=== PATIENT | male | born 1975 | race African-American/Black ===

== ENCOUNTER 2018-06-25 11:09 | Emergency (ER) | payer BC, MEDICAID ==
[~2018-06-25] VITALS: Ht 188 cm; Wt 100.0 kg
[2018-06-25] MEDS ORDERED: ACETAMINOPHEN 325MG TABLET PO ONE (11:45)
[2018-06-25 12:30] VITALS: BP 128/88
== END 2018-06-25 13:00 | disposition home or self-care (01) ==
LOC: ER 11:09
DX: S02.2XXA Fracture of nasal bones, initial encounter for closed fracture (principal); S00.83XA Contusion of other part of head, initial encounter; Y04.2XXA Assault by strike against or bumped into by another person, initial encounter; Y93.89 Activity, other specified; Y92.89 Other specified places as the place of occurrence of the external cause; R04.0 Epistaxis
CPT/HCPCS: 70160; 99283

== ENCOUNTER 2018-12-26 00:10 | Emergency (ER) | payer BC, MEDICAID ==
[~2018-12-26] VITALS: Ht 182.9 cm; Wt 100.0 kg
[2018-12-26] MEDS ORDERED: VISCOUS LIDOCAINE 2% 15 ML UDC MM STA (01:12)
[2018-12-26 01:13] LABS: HEMATOCRIT 41.8 % (42.0-52.0); HEMOGLOBIN 14.5 g/dL (14.0-18.0); MEAN CORPUSCULAR HEMOGLOBIN 30.3 pg (28.0-32.0); MEAN CORPUSCULAR VOLUME 87.1 fL (80.0-94.0); PLATELET 223 x1000/uL (130-400); RED CELL DISTRIBUTION WIDTH 14.1 % (11.6-14.6)
[2018-12-26 01:19] LABS: CHLORIDE 107 mEq/L (98-107)
[2018-12-26] MEDS ORDERED: IOHEXOL-350 100 ML BOTTLE ONE (02:47)
[2018-12-26 03:13] VITALS: BP 137/87
== END 2018-12-26 04:17 | disposition home or self-care (01) ==
LOC: ER 00:27
DX: R59.1 Generalized enlarged lymph nodes (principal); F12.10 Cannabis abuse, uncomplicated; F17.200 Nicotine dependence, unspecified, uncomplicated; Z90.89 Acquired absence of other organs; Z98.890 Other specified postprocedural states
CPT/HCPCS: 36415; 70491; 80053; 85027; 87040; 99284; Q9967; Z7610

== ENCOUNTER 2020-10-15 11:40 | Emergency (ER) | payer BC, MEDICAID ==
[~2020-10-15] VITALS: Ht 182.9 cm; Wt 107.0 kg
[2020-10-15] MEDS ORDERED: SODIUM CHLORIDE 0.9% 1000ML BAG (SEPSIS BOLUS) IV ONE (12:15)
[2020-10-15 12:47] LABS: BASOPHILS % 0.5 % (0.0-2.0); EOSINOPHILS % 0.7 % (0.0-5.0); HEMATOCRIT. 45.4 % (42.0-52.0); HEMOGLOBIN. 14.9 g/dL (14.0-18.0); MEAN PLATELET VOLUME 8.3 fl (7.4-10.4); MONOCYTES % 6.9 % (2.0-8.0); NEUTROPHILS % 68.9 % (40.0-76.0); PLATELET 332 x1000/uL (130-400); RED BLOOD CELL COUNT 5.16 mill/uL (4.7-6.1); RED CELL DISTRIBUTION WIDTH 14.6 % (11.6-14.6)
[2020-10-15 12:56] LABS: CHLORIDE 104 mEq/L (98-107)
[2020-10-15 13:01] LABS: ETHANOL BLOOD 25 mg/dL; PROTHROMBIN TIME 11.2 sec (9.6-11.0)
[2020-10-15] MEDS ORDERED: MEBE100T16 MT (14:08)
[2020-10-15 14:27] VITALS: BP 132/78
== END 2020-10-15 14:28 | disposition left against medical advice (07) ==
LOC: ER 11:40
DX: R19.5 Other fecal abnormalities (principal)
CPT/HCPCS: 36415; 71045; 80053; 80307; 80320; 80329; 82140; 83605; 83690; 84145; 84484; 85025; 85610; 87040; 93005; 96360; 96361; 99285; J7030; G0480

== ENCOUNTER 2023-08-02 09:21 | Emergency (ER) | payer BC, MEDICAID ==
[~2023-08-02] VITALS: Ht 188 cm; Wt 113.0 kg
[~2023-08-02 09:21] MED LIST: MEBE100T16 MT
[2023-08-02 09:30] VITALS: TEMP 98.4; O2SAT 100
[2023-08-02] MEDS ORDERED: KETOROLAC 60MG/2ML VIAL IM ONE (10:45)
[2023-08-02 10:54] VITALS: BP 177/116; PULSE 79; RESP 20
[2023-08-02] MEDS ORDERED: IBUP-2029 MT (11:38)
[2023-08-02] MEDS ORDERED: CYCL10TA21 MT (11:38)
[2023-08-02] MEDS ORDERED: CYCLOBENZAPRINE 10MG TABLET PO ONE (12:00)
== END 2023-08-02 12:12 | disposition home or self-care (01) ==
LOC: ER 10:12
DX: M54.12 Radiculopathy, cervical region (principal); M54.2 Cervicalgia; Z90.49 Acquired absence of other specified parts of digestive tract
CPT/HCPCS: 99283; 73030; 96372; J1885